=== PATIENT | female | born 1960 | race Two or more races ===

== ENCOUNTER 2019-09-19 06:45 | Day surgery (SDC) | payer OTHER ==
[~2019-09-19 06:45] MED LIST: MULTIVITAMINS1 EAC9 PO; VITAMIN C100 MG PO; VITAMIN D310 MCG/1 M PO
== END 2019-09-19 16:35 | disposition home or self-care (01) ==
LOC: LAB 06:45 → CIR.AMB 06:45 → LAB 07:52 → CIR.AMB 16:35
PROVIDERS: ATTEND Obstetrics & Gynecology Gynecology
DX: N84.0 Polyp of corpus uteri (principal); Z20.828 Contact with and (suspected) exposure to other viral communicable diseases